=== PATIENT | male | born 1970 | race American Indian/Alaskan Native ===

== ENCOUNTER 2021-08-02 11:42 | Outpatient (REF) | payer OTHER, SELFPAY ==
--- NOTE | ~2021-08-02 | XR_ITS ---
EXAMINATION: XR SHOULDER, LEFT CLINICAL INFORMATION: S43.50XA - Sprain of unspecified acromioclavicular joint COMPARISON: None TECHNIQUE: Left shoulder is imaged in 3 views. FINDINGS: There is no fracture, dislocation, destructive process. The glenohumeral joint appears normal. There are degenerative changes acromioclavicular joint with inferior spurring distal clavicle. There is no acromioclavicular widening or elevation distal clavicle. No visible rotator cuff calcifications. XR/XR shoulder LT min 2V IMPRESSION: Degenerative changes acromioclavicular joint.
== END 2021-08-02 11:43 | disposition home or self-care (01) ==
LOC: HO.HMGCX 11:42
PROVIDERS: PCP Physician Assistant; Visit Provider Internal Medicine
DX: S43.50XA Sprain of unspecified acromioclavicular joint, initial encounter (principal)
CPT/HCPCS: 73030

== ENCOUNTER 2021-11-10 08:00 | Outpatient (RCR) | payer OTHER, SELFPAY ==
--- NOTE | 2021-11-02 09:43 | MHC.PT.EP ---
[facility] [place] [facility] [place] [facility] [place] Office [address] Jed Vivas [address] [phone] F: [phone] F: [phone] F: [phone] F: [phone] Physical Therapy Plan of Care Date of Evaluation: Date of Surgery: Diagnosis: Sprain of L AC joint. Assessment: Pt is a 51 y/o male referred to PT for eval and treat of sprain of L AC joint who presents with signs and Sx consistent with L shoulder dysfunction resulting in decreased tolerance and ability for perform light and heavy HH chores, dressing pullovers, lifting objects of weight, reaching his neck for hygiene and dressing, reaching high shelves, as well as disturbed sleep secondary to decreased L shoulder ROM and strength, decreased scapular posture, TTP of superior lateral L shoulder, and pain. Pt is deemed an appropriate candidate to receive skilled PT in order to address his physical limitations to improve his functional ability. Frequency and Duration: The patient will be seen 2 x / wk x 5 wks. Short Term Goals: Initiate HEP. Improve baseline pain with activity to < 5/10; initial; 7-8/10. improve L shoulder flexion AAROM to > 149 degrees; initial: 50 degrees. Mat Roller Goals: I with HEP. Pt will be able to dress pullovers with at most 2/10 difficulty; initial: 10/10. Pt will be able to place 1# object on high shelf; initial: unable. Improve L shoulder abd MMT to > 4-/5; initial 3+/5. Treatment Plan: Modalities to reduce pain, spasms and effusion. Manual therapy to restore motion and function. Therapeutic exercise to improve strength and flexibility. Neuromuscular re-education for posture and balance. Therapeutic activities to return to functional activities of daily living. Electronically signed by: Aaron Kurtz, PT, DPT Please sign and return to therapist. Thank you for your referral.
--- NOTE | 2021-11-17 09:04 | MHC.PT.DC ---
[facility] [place] [facility] [place] Office [place] Office [address] Jed Vivas [address] [phone] F: [phone] F: [phone] F: [phone] F: [phone] Physical Therapy Discharge Report Diagnosis: Sprain of L AC joint. Date of Surgery: Date of Evaluation: 10/29/21 Date of Discharge: Treatments to Date: 4 Cancellations to Date: 1 No Shows to Date: Discharge Status: Discharge Summary: Tarun presents with continued minimal improvement of AROM and function and also presents with new MRI which was reviewed. Pt and PT in agreement on DC at this time in light of significant MRI findings and Pt will seek orthopedic guidance and management before he returns to therapy as his pain is largely the same and his AROM and function has not significantly improved. Electronically signed by: Aaron Kurtz, PT, DPT Please sign and return to therapist. Thank you for your referral.
== END 2021-11-17 09:10 | disposition home or self-care (01) ==
LOC: HO.PTCHIC 08:00
PROVIDERS: PCP Physician Assistant; Visit Provider Physician Assistant
DX: S43.50XA Sprain of unspecified acromioclavicular joint, initial encounter (principal)
CPT/HCPCS: 97014; 97110; 97140; 97161

== ENCOUNTER 2021-11-11 15:36 | Outpatient (REF) | payer OTHER, SELFPAY ==
--- NOTE | ~2021-11-11 | MR_ITS ---
EXAMINATION: MRI LEFT SHOULDER WITHOUT CONTRAST CLINICAL INFORMATION: Sprain of muscle. Patient reports decreased range of motion. Injury July 2021. COMPARISON: X-ray of the left shoulder July 2021. TECHNIQUE: MRI of the left shoulder was performed without contrast on a high-field MRI scanner. FINDINGS: ROTATOR CUFF: Supraspinatus and infraspinatus: There is a large insertional tear involving the entire supraspinatus and infraspinatus tendons. The torn tendons are retracted resulting in a tendon gap measuring up to 4 cm in medial to lateral and 4.5 cm anterior to posterior. There is additional intrasubstance tearing of the infraspinatus tendon extending back to level of the musculotendinous junction. With regard to the supraspinatus, there is slight greater proximal retraction of the articular-sided fibers compared with the bursal fibers. There is mild atrophy and fatty infiltration of both muscles. Mild edema of the supraspinatus muscle. Teres minor: Intact. Subscapularis: Mild heterogeneity of the upper fibers at the insertion compatible with some minimal interstitial partial tearing and tendinosis. No measurable defect or tendon retraction. Muscle normal. BICEPS: Normal. CORACOACROMIAL ARCH: There is moderate hypertrophic osteoarthritis of the acromioclavicular joint. There is a subacromial spur anteriorly. BURSA: Free communication of fluid between the bursa and glenohumeral joint consistent with rotator cuff tear. LABRUM/CAPSULE: Intact. GLENOHUMERAL JOINT: Humeral head is subluxed cephalad nearly abutting the undersurface of the acromion related to the rotator cuff defect. There articular cartilage is intact. There is some minimal clustered cystic change in the greater tuberosity. MR/MR shoulder LT wo con IMPRESSION: Large complete insertional tear of the supraspinatus and infraspinatus with mild atrophy and fatty infiltration of the muscles. Mild edema of the infraspinatus muscle. Tendinosis and minimal partial tearing of the subscapularis tendon without a measurable defect. 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 Joint effusion.
== END 2021-11-11 15:37 | disposition home or self-care (01) ==
LOC: HO.MRI 15:36
PROVIDERS: PCP Physician Assistant; Visit Provider Physician Assistant
DX: S46.212D Strain of muscle, fascia and tendon of other parts of biceps, left arm, subsequent encounter (principal)
CPT/HCPCS: 73221

== ENCOUNTER 2022-02-23 08:42 | Outpatient (REF) | payer OTHER, SELFPAY ==
[2022-02-23 09:08] LABS: Hematocrit 45.6 % (42.0-52.0); Hemoglobin 15.7 g/dl (14.0-18.0); Mean Corpuscular HGB Conc 34.4 g/dl (31.0-36.0); Mean Corpuscular Hemoglobin 30.7 pg (27.0-33.0); Mean Corpuscular Volume 89.2 fL (80.0-98.0); Mean Platelet Volume 9.1 fL (9.4-12.4); Platelet Count 233 X10*3/uL (160-400); Red Blood Count 5.11 X10*6/uL (4.60-5.80); Red Cell Distribution Width 12.5 % (11.0-16.0); White Blood Count 7.4 X10*3/uL (4.8-10.8)
[2022-02-23 09:14] LABS: Estimated Average Glucose 108 mg/dL; Hemoglobin A1c % 5.4 %
[2022-02-23 09:33] LABS: Alanine Aminotransferase 39 U/L (0-40); Albumin Level 4.4 g/dL (3.5-5.0); Alkaline Phosphatase 74 U/L (39-117); Anion Gap 11 (12-20); Aspartate Amino Transferase 26 U/L (5-37); Bilirubin Total 0.5 mg/dL (0.0-1.0); Blood Urea Nitrogen 15 mg/dL (9-16); Calcium 9.4 mg/dL (8.4-10.2); Carbon Dioxide 28 mmol/L (22-29); Chloride 107 mmol/L (96-108); Cholesterol 222 mg/dL; Estimated Glomerular Filt Rate > 60; Glucose Fasting 109 mg/dL (60-99); HDL Cholesterol 51 mg/dL; LDL Cholesterol Calculated 159 mg/dl; Potassium 4.9 mmol/L (3.3-5.1); Sodium 141 mmol/L (135-145); Total Protein 6.9 g/dL (6.5-8.0); Triglycerides 63 mg/dL
[2022-02-23 09:54] LABS: Prostate Specific Antigen Scr 1.75 ng/mL (<0.05-4.0); TSH reflex Free T4 1.32 uIU/mL (0.32-4.0)
== END 2022-02-23 08:43 | disposition home or self-care (01) ==
LOC: HO.LAB 08:42
PROVIDERS: PCP Physician Assistant; Visit Provider Physician Assistant
DX: Z12.5 Encounter for screening for malignant neoplasm of prostate (principal); I10 Essential (primary) hypertension
CPT/HCPCS: 36415; 80053; 80061; 82306; 83036; 84153; 84443; 85027

== ENCOUNTER 2023-01-04 14:56 | Outpatient (REF) | payer OTHER, SELFPAY ==
--- NOTE | ~2023-01-04 | US_ITS ---
EXAMINATION: US ABDOMEN COMPLETE CLINICAL INFORMATION: Hypoglycemia, unspecified. COMPARISON: None available. TECHNIQUE: Real-time imaging of the abdominal viscera. FINDINGS: PANCREAS: Normal. ABDOMINAL AORTA: Visualized portions are normal. INFERIOR VENA CAVA: Visualized portions are normal. LIVER: The liver is normal in size. The liver contour is normal. Increased echogenicity sparing regions adjacent to the gallbladder fossa. No focal hepatic lesion. There is no intrahepatic biliary duct dilatation seen. GALLBLADDER: Normal. The gallbladder is physiologically distended without evidence of stones, sludge, polyps, wall thickening or pericholecystic fluid. COMMON BILE DUCT: Normal in caliber measuring 0.3 cm in diameter. RIGHT KIDNEY: Normal. No hydronephrosis. No renal calculi or focal parenchymal lesions. The kidney measures 10.4 cm in maximum dimension. LEFT KIDNEY: Normal. No hydronephrosis. No renal calculi or focal parenchymal lesions. The kidney measures 11.8 cm in maximum dimension. SPLEEN: Normal. The spleen measures 12.2 cm in maximum dimension. FREE FLUID: None. US/US abdomen complete IMPRESSION: 1. Increased parenchymal echogenicity suggesting hepatocellular disease or hepatic steatosis. 2. Otherwise, normal examination.
[2023-01-04 16:18] LABS: Hematocrit 44.1 % (42.0-52.0); Hemoglobin 15.5 g/dl (14.0-18.0); Mean Corpuscular HGB Conc 35.1 g/dl (31.0-36.0); Mean Corpuscular Hemoglobin 30.8 pg (27.0-33.0); Mean Corpuscular Volume 87.5 fL (80.0-98.0); Mean Platelet Volume 9.3 fL (9.4-12.4); Platelet Count 299 X10*3/uL (160-400); Red Blood Count 5.04 X10*6/uL (4.60-5.80); Red Cell Distribution Width 12.6 % (11.0-16.0); White Blood Count 10.2 X10*3/uL (4.8-10.8)
[2023-01-04 16:35] LABS: Alanine Aminotransferase 46 U/L (0-40); Albumin Level 4.6 g/dL (3.5-5.0); Alkaline Phosphatase 81 U/L (39-117); Anion Gap 12 (12-20); Aspartate Amino Transferase 34 U/L (5-37); Bilirubin Total 0.8 mg/dL (0.0-1.0); Blood Urea Nitrogen 16 mg/dL (9-16); Calcium 9.6 mg/dL (8.4-10.2); Carbon Dioxide 28 mmol/L (22-29); Chloride 104 mmol/L (96-108); Estimated Glomerular Filt Rate > 60; Glucose Fasting 98 mg/dL (60-99); Lipase 33 U/L (8-78); Potassium 4.2 mmol/L (3.3-5.1); Sodium 140 mmol/L (135-145)
[2023-01-04 16:53] LABS: Creatinine Urine 200.77 mg/dL; Microalbum/Creatinine Ratio Ur 12.9 ug/mg cr
[2023-01-04 16:57] LABS: Prostate Specific Antigen Scr 1.96 ng/mL (<0.05-4.0); TSH reflex Free T4 2.63 uIU/mL (0.32-4.0)
== END 2023-01-04 14:57 | disposition home or self-care (01) ==
LOC: HO.HMGCX 14:56
PROVIDERS: PCP Physician Assistant; Visit Provider Physician Assistant
DX: I10 Essential (primary) hypertension (principal); E16.2 Hypoglycemia, unspecified; Z12.5 Encounter for screening for malignant neoplasm of prostate
CPT/HCPCS: 36415; 76700; 80053; 82043; 83690; 84153; 84443; 85027

== ENCOUNTER 2023-08-07 14:59 | Outpatient (AMB) | payer OTHER, SELFPAY ==
--- NOTE | 2023-08-07 15:19 | A.OFFPC_ITS ---
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 Accompanied by: Self / Same As Patient Allergies amoxicillin Allergy (Unknown, Verified 08/07/23 15:49) unknown doxycycline Allergy (Unknown, Verified 08/07/23 15:49) hives onion Allergy (Unknown, Verified 08/07/23 15:49) hives tetracycline Allergy (Unknown, Verified 08/07/23 15:49) hives environmental Allergy (Unknown, Uncoded 12/26/22 08:17) Unknown Medication List - Last Reconciled 08/07/23 by Rush Lancaster PA-C albuterol sulfate 2.5 mg (3 mL) inhalation Q6H albuterol sulfate 90 mcg/actuation 2 puffs inhalation Q6H PRN 30 days cyclobenzaprine 10 mg PO TID PRN 7 days lisinopril-hydrochlorothiazide 10-12.5 mg 1 tab PO DAILY 90 days meloxicam 15 mg PO DAILY 30 days montelukast 10 mg PO DAILY nebulizer accessories As directed nebulizers (Compact Compressor Nebulizer) As directed valacyclovir 500 mg PO DAILY Tobacco use date assessed: 12/26/22 Dental Screening Dental Screen Date: 08/07/23 Did you have a dental visit in the last 12 months?: Yes Did you have a dental problem in the last 6 months where you did not have access to dental care?: No Was dental information given to patient?: Patient has dentist HPI Pe HPI Details Patient is a 52-year-old here today for annual physical.? Patient has a past medical history significant for COPD, hypertension. CHRONIC MEDICAL CONDITIONS--> Left rotator cuff tear: Recently underwent left rotator cuff repair,has been in PT and has regained some ROM ( only 60 %). Continues with the use of meloxicam on a daily basis, p.r.n. use of cyclobenzaprine which is helpful on reducing his muscle tension when needed. Still works full-time. .. HTN: Blood pressure acceptable today in office. ? He reports blood pressures at home have been 130s to 140 systolic.? He reports he may have forgotten to take his blood pressure medication today. ?He does report his diet is poor .? Otherwise denies any chest discomfort, headaches or shortness of breath. .. : Obese: He does understand his BMI is over 30 will try to work on being more physically active and adapting to better eating habits to reduce his weight. .. 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 does have a nebulizer fail a bbl to him. . Lumbar disc disease:? Continues with the use of cyclobenzaprine at night and meloxicam during the day (2 weeks on/ 2 weeks off). .. Colon cancer screening: Has done Cologuard though no results Vaccines: Up-to-date with pneumonia vaccine, tetanus vaccine. Considering flu vaccine? [facility] Medical History (Updated 08/09/23 @ 12:52 by Rush Lancaster PA-C) Hypertension COPD (chronic obstructive pulmonary disease) Surgical History (Updated 08/09/23 @ 12:52 by Rush Lancaster PA-C) History of shoulder surgery Deficient knowledge of leg surgery History of tonsillectomy Family History Father CVD (cardiovascular disease) History of quadruple bypass Mother Diabetes Ovarian cancer Breast cancer Brain cancer Sister In good health Maternal Grandmother Cancer Maternal Grandfather Lung cancer Paternal Grandmother Dementia in Alzheimer's disease Paternal Grandfather Renal failure GI cancer (Updated 08/07/23 @ 15:57 by Rush Lancaster PA-C) Housing: House Alcohol intake: current Alcohol intake frequency: holidays/special occasions only Patient Tobacco Use Status: Never used Tobacco e-Cigarette/Vaping Use: Never Used Second Hand Smoke Exposure: No Substance Use Type: Marijuana service: No Current occupational status: employed 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 Luis Fernando Melgar, Eliza Parsons, Uri cAuna and colleagues, with an educational joshua from [employer]. Review of Systems Const Denies body aches, Denies chills, Denies excessive sweating, Denies fatigue, Denies fever(s) and Denies headache(s) Eyes Denies blurry vision ENT Denies dysphagia, Denies vertigo, Denies dizziness, Denies headache(s), Denies hearing loss and Denies tinnitus Card Denies chest pain, Denies chest pain with activity, Denies syncope, Denies irregular heart rhythm and Denies dyspnea Resp Denies chest congestion, Denies cough, Denies hemoptysis, Denies dyspnea and Denies wheezing GI Denies abdominal pain, Denies melena, Denies hematochezia, Denies coffee ground emesis, Denies dysphagia, Denies diarrhea, Denies nausea and Denies vomiting Denies difficulty urinating, Denies dysuria, Denies urinary frequency, Denies urinary hesitancy and Denies urinary urgency Musc Denies arthralgias, Denies limited range of motion, Denies muscle cramps and Denies muscle weakness Skin/Breast Denies rash and Denies skin ulcer Neuro Denies Abnormal speech present, Denies confusion, Denies vertigo, Denies dizziness, Denies syncope, Denies headache(s), Denies memory loss and Denies seizure-like activity Psych Denies anxiety, Denies confusion, Denies depression, Denies memory loss, Denies panic attacks and Denies paranoia Endo Denies excessive sweating, Denies fatigue, Denies flushing, Denies polydipsia and Denies polyuria Aller/Immun Denies wheezing Physical exam (Primary Care) Vital Signs: Last Vital Signs Pulse 78 08/07/23 15:20 BP 118/76 08/07/23 15:20 Pulse Ox 98 08/07/23 15:20 Oxygen Delivery Method Room Air 08/07/23 15:20 BMI result Body Mass Index 34.6 BMI Assessment/Plan discussion: High Tobacco/Smoking Status: Tobacco use Status Tobacco use date assessed 12/26/22 08/07/23 15:21 Patient Tobacco Use Status Never used Tobacco 08/07/23 15:57 e-Cigarette/Vaping Use Never Used 08/07/23 15:57 Thrive Assessment: Date of Thrive Assessment Date Thrive assessed 12/26/22 08/07/23 15:21 Const Other: Obese General: cooperative, comfortable, no acute distress, alert and awake; No confusion Orientation/consciousness: oriented to person, oriented to place, patient oriented x3 and No confusion HENMT Head: Yes normocephalic Ears: external ears normal and TM's normal bilaterally Face and sinus: No sinus tenderness Mouth: Normal oral and palatal mucosa present and tongue normal Teeth and gingiva: dentition normal and gingiva normal Throat: Yes posterior oropharynx normal, Yes tonsils normal and Yes uvula midline Eyes Conjunctivae: conjunctivae normal Sclerae: sclerae normal Pupils: Equal, round and reactive pupils present EOM: EOMs intact bilaterally Direct Ophthalmoscopy: No no photophobia Neck Neck: Yes no lymphadenopathy, No tender and Yes no JVD Thyroid: Thyroid normal Carotids: no bruits Chest Chest palpation & inspection: no tenderness Resp Effort & Inspection: normal respiratory effort, no audible wheezes, not labored and no stridor Auscultation: no crackles, no rales, no rhonchi and no wheezes Cardio Jugular venous distension: no JVD Rate: regular rate, not bradycardic and not tachycardic Rhythm: regular rhythm Bruits: no carotid bruits Peripheral pulses: Peripheral pulses 2+ throughout GI Inspection: Yes normal to inspection, No abdominal wall ecchymosis and No visible herniation Palpation (GI): Soft to palpation, nontender, no guarding, not rigid and No hepatosplenomegaly present Auscultation: normoactive bowel sounds General: Yes no CVA tenderness Back/Spine/Pelvis Back: no CVA tenderness and No back tenderness Cervical Spine: cervical ROM normal Thoracic/Lumbar Spine: thoracic and lumbar spine normal to inspection, straight leg raise negative bilaterally, No thoraco-lumbar ROM limited and No lumbar spinal tenderness Skin Lesions: no lesions Rashes: no rashes Wounds: no wounds Neuro General: oriented to person, oriented to place, patient oriented x3, CN's II-XI intact bilaterally and No confusion Cranial nerves: Yes Equal, round and reactive pupils present and Yes Normal accommodation reflex present Cognition (Neuro): normal cognition Speech: No Abnormal speech present Gait exam (Neuro): Normal gait present Motor exam (neuro): 5/5 motor strength present throughout Extrem Other: LEFT SHOULDER: VERY LIMITED RANGE OF MOTION Right upper extremity: full ROM; no cyanosis Left upper extremity: no cyanosis Right lower extremity: no edema Left lower extremity: no edema Psych Appearance: grossly normal Mental Status: mental status grossly normal Affect: normal affect Attitude: cooperative Thought process: Normal thought process present Assessment and Plan Assessment & Plan (1) Annual physical exam: Code(s): Z00.00 - Encounter for general adult medical examination without abnormal findings (2) HTN (hypertension): Code(s): I10 - Essential (primary) hypertension Qualifiers: Hypertension type: essential hypertension Qualified Code(s): I10 - Essential (primary) hypertension Plan: Patient's blood pressure acceptable today in office. Will continue him on his current dose of hydrochlorothiazide. Goal blood pressures to remain below 140/90 (3) HLD (hyperlipidemia): Code(s): E78.5 - Hyperlipidemia, unspecified Qualifiers: Hyperlipidemia type: mixed hyperlipidemia Qualified Code(s): E78.2 - Mixed hyperlipidemia Plan: Patient does have borderline high total cholesterol. Will work on lifestyle modifications on reducing his eye cholesterol foods. He does admit to dietary indiscretion. (4) COPD (chronic obstructive pulmonary disease): Code(s): J44.9 - Chronic obstructive pulmonary disease, unspecified Qualifiers: COPD type: unspecified COPD Qualified Code(s): J44.9 - Chronic obstructive pulmonary disease, unspecified Plan: Continues with the use nebulizer albuterol inhaler as needed. 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 [place] (5) Obese: Code(s): E66.9 - Obesity, unspecified Qualifiers: Obesity type: due to excess calories Obesity classification: adult class 1 (BMI 30 - 34.9) Serious obesity comorbidity presence: without serious comorbidity Body mass index: BMI 33.0-33.9 Qualified Code(s): E66.09 - Other obesity due to excess calories; Z68.33 - Body mass index [BMI] 33.0-33.9, adult Plan: Patient does understand his BMI is over 30 will continue to try to work on being more physically active and adapting to better eating habits to reduce his weight (6) Status post left rotator cuff repair: Code(s): Z98.890 - Other specified postprocedural states Plan: Patient is status post left rotator cuff repair. Has gained some strength and range of motion back though reports he is only 60%. Continues to have pain and stiffness to which he uses muscle relaxer and NSAID for. Continues to work full-time Orders: Orders Comprehensive [place]. Panel Fast 08/07/23 I10 - Essential (primary) hypertension Prostate Specific Antigen Scr 08/07/23 I10 - Essential (primary) hypertension, Z12.5 - Encounter for screening for malignant neoplasm of prostate Microalbumin, Random (w Creat) 08/07/23 I10 - Essential (primary) hypertension Lipid Panel 08/07/23 E78.2 - Mixed hyperlipidemia Coding Level of Care Code Est Pt Prev Care 40-64y([id number]) Diagnoses Annual physical exam Z00.00 Essential hypertension I10 Hypertension type: essential hypertension Mixed hyperlipidemia E78.2 Hyperlipidemia type: mixed hyperlipidemia Chronic obstructive pulmonary disease, unspecified COPD type J44.9 COPD type: unspecified COPD Class 1 obesity due to excess calories without serious comorbidity with body mass index (BMI) of 33.0 to 33.9 in adult E66.09; Z68.33 Obesity type: due to excess calories Obesity classification: adult class 1 (BMI 30 - 34.9) Serious obesity comorbidity presence: without serious comorbidity Body mass index: BMI 33.0-33.9 Status post left rotator cuff repair Z98.890
[2023-08-07 15:20] VITALS: BP 118/76; PULSE 78; O2SAT 98; BMI 34.6
== END 2023-08-07 16:09 | disposition home or self-care (01) ==
PROVIDERS: PCP Physician Assistant; Visit Provider Physician Assistant
DX: Z00.00 Encounter for general adult medical examination without abnormal findings (principal); I10 Essential (primary) hypertension; E78.2 Mixed hyperlipidemia; J44.9 Chronic obstructive pulmonary disease, unspecified; E66.09 Other obesity due to excess calories; Z68.33 Body mass index [BMI] 33.0-33.9, adult; Z98.890 Other specified postprocedural states
CPT/HCPCS: 99396

== ENCOUNTER 2023-09-25 09:58 | Outpatient (AMB) | payer OTHER, SELFPAY ==
--- NOTE | 2023-09-25 10:02 | MHC.PC.OV ---
Vital Signs 09/25/23 10:03 Height 5 ft 10 in Weight 249 lb BMI 35.7 BP 132/80 Blood Pressure Location Lt brachial Position Sitting Intake Visit Reasons: Numbness/tingling neck and jaw Intake Note: Patient here for numbness/ tingling neck and sukumar going on a few weeks [employer] Required: No Accompanied by: Self / Same As Patient Allergies amoxicillin Allergy (Unknown, Verified 09/25/23 10:12) unknown doxycycline Allergy (Unknown, Verified 09/25/23 10:12) hives onion Allergy (Unknown, Verified 09/25/23 10:12) hives tetracycline Allergy (Unknown, Verified 09/25/23 10:12) hives environmental Allergy (Unknown, Uncoded 09/25/23 10:12) Unknown Medication List - Last Reconciled 09/25/23 by Nika Mendez MD albuterol sulfate 2.5 mg (3 mL) inhalation Q6H albuterol sulfate 90 mcg/actuation 2 puffs inhalation Q6H PRN 30 days cyclobenzaprine 10 mg PO TID PRN 7 days lisinopril-hydrochlorothiazide 10-12.5 mg 1 tab PO DAILY 90 days meloxicam 15 mg PO DAILY 30 days montelukast 10 mg PO DAILY nebulizer accessories As directed nebulizers (Compact Compressor Nebulizer) As directed valacyclovir 500 mg PO DAILY Tobacco use date assessed: 09/25/23 Dental Screening Dental Screen Date: 09/25/23 Did you have a dental visit in the last 12 months?: Yes Did you have a dental problem in the last 6 months where you did not have access to dental care?: No Was dental information given to patient?: Patient has dentist HPI HPI Comments History of Present Illness Details This is a 53-year-old male with hypertension and asthma that comes today complaining of jaw pain and neck pain associated with numbness and tingling more prominent on the left side radiating to the left shoulder. This started few weeks ago with no previous injury. Had left rotator cough tear repair a year ago and still has some pain and limited range of motion. This happen with certain movements. Neck has limited range of motion. Blood pressure stable with medications. Use rescue inhaler as needed for his asthma. [facility] Medical History (Updated 09/25/23 @ 10:25 by Nika Mendez MD) Hypertension COPD (chronic obstructive pulmonary disease) Surgical History History of shoulder surgery Deficient knowledge of leg surgery History of tonsillectomy Family History Father CVD (cardiovascular disease) History of quadruple bypass Mother Diabetes Ovarian cancer Breast cancer Brain cancer Sister In good health Maternal Grandmother Cancer Maternal Grandfather Lung cancer Paternal Grandmother Dementia in Alzheimer's disease Paternal Grandfather Renal failure GI cancer Social History Housing: House Alcohol intake: current Alcohol intake frequency: holidays/special occasions only Patient Tobacco Use Status: Never used Tobacco e-Cigarette/Vaping Use: Never Used Second Hand Smoke Exposure: No Substance Use Type: Marijuana service: No Current occupational status: employed 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 1. Little interest or pleasure in doing things: not at all 2. Feeling down, depressed, or hopeless: not at all 3. Trouble falling or staying asleep, or sleeping too much: not at all 4. Feeling tired or having little energy: not at all 5. Poor appetite or overeating: not at all 6. Feeling bad about yourself - or that you are a failure or have let yourself or your family down: not at all 7. Trouble concentrating on things, such as reading the newspaper or watching television: not at all 8. Moving or speaking so slowly that other people could have noticed. Or the opposite - being so fidgety or restless that you have been moving around a lot more than usual: not at all 9. Thoughts that you would be better off or of hurting yourself in some way: not at all Total score: 0 Depression Screening Interpretation: Negative Depression Screening Done: Yes 46522 - PHQ-9 Billing: Yes Source: Developed by Drs. Luis Fernando Melgar, Eliza Parsons, Uri Acuna and colleagues, with an educational joshua from [employer]. Thrive Questionnaire Date Thrive assessed: 09/25/23 I am a: Patient What is your living situation today?: I have a steady place to live Within the past 12 months, did the food you bought not last and you didn't have the money to get more?: Never true Within the past 12 months, did you worry whether your food would run out before you got money to buy more?: Never true Do you have trouble paying for medicines?: No Do you have trouble getting transportation to medical appointments?: No Do you have trouble paying your heating and electricity bill?: No Do you have trouble taking care of your child, family member or friend?: No Do you have trouble with day-to-day activities such as bathing, preparing meals, shopping, managing finances, etc.?: No Are you currently unemployed and looking for a job?: No Are you interested in more education?: No Please select the resources that you would like help with: None Currently or been in a relationship where the following occur: no concerns reported AUDIT C Alcohol Use Questionnaire (AUDIT-C) 1. How often do you have a drink containing alcohol?: Monthly or less 2. How many drinks containing alcohol do you have on a typical day when you are drinking?: 1 or 2 3. How often do you have six or more drinks on one occasion?: Never Total Score: 1 LENIN-7 AMB Questionnaire LENIN-7 Date LENIN - 7 assessed: 09/25/23 Feeling nervous, anxious, or on edge: 0 = Not at all Not being able to stop or control worryin = Not at all Worrying too much about different things: 0 = Not at all Trouble relaxin = Not at all Being so restless that it is hard to sit still: 0 = Not at all Becoming easily annoyed or irritable: 0 = Not at all Feeling afraid as if something awful might happen: 0 = Not at all Total LENIN-7 score (0-4 normal; 5-9 mild; 10-14 moderate; 15-21 severe): 0 Source: Developed by Drs. Luis Fernando Melgar, Eliza Parsons, Uri Acuna and colleagues, with an educational joshua from [employer]. LENIN-7 Assessment Billing LENIN-7 Assessment Tool: LENIN-7 Assessment 93882 Review of Systems Const All systems reviewed & are unremarkable except as noted in HPI and below Eyes Reports no additional complaints, Denies change in vision and Denies other visual disturbances ENT Reports neck pain Card Denies chest pain at rest, Denies chest pain with activity, Denies edema, Denies irregular heart rhythm, Denies claudication, Denies dyspnea, Denies dyspnea on exertion, Denies orthopnea, Denies paroxysmal nocturnal dyspnea and Denies slow heart rate Resp Denies cough, Denies dyspnea and Denies dyspnea on exertion GI Denies abdominal pain, Denies change in bowel habits, Denies excessive flatus, Denies nausea and Denies vomiting Denies urinary hesitancy, Denies urinary incontinence and Denies urinary urgency Musc Denies abnormal gait, Denies atrophy, Denies deformity, Denies limited range of motion, Reports neck pain and Reports numbness Skin/Breast Denies bleeding lesions, Denies changing lesions and Denies rash Neuro Denies abnormal gait, Denies behavioral changes, Denies lack of coordination and Reports numbness Psych Denies behavioral changes Physical exam (Primary Care) Vital Signs: Last Vital Signs BP 132/80 09/25/23 10:03 BMI result Body Mass Index 35.7 Tobacco/Smoking Status: Tobacco use Status Tobacco use date assessed 09/25/23 09/25/23 10:08 Patient Tobacco Use Status Never used Tobacco 09/25/23 10:04 e-Cigarette/Vaping Use Never Used 09/25/23 10:04 PHQ-9: PHQ-9 Score PHQ-9: Total score 0 09/25/23 10:08 Depression Screening Interpretation: Negative Thrive Assessment: Date of Thrive Assessment Date Thrive assessed 09/25/23 09/25/23 10:08 Currently or been in a relationship where the following occur: no concerns reported Eyes General: appearance normal, both eyes and all related structures Eyelids: Yes eyelids normal Conjunctivae: conjunctivae normal Neck Other: Limited lateral neck movements and limited neck flexion/extension Resp Effort & Inspection: normal respiratory effort Auscultation: clear to auscultation bilaterally Cardio Jugular venous distension: no JVD Rate: regular rate Rhythm: regular rhythm Heart sounds: S1 normal heart sound present and S2 normal heart sound present Assessment and Plan Assessment & Plan (1) HTN (hypertension): Code(s): I10 - Essential (primary) hypertension Qualifiers: Hypertension type: essential hypertension Qualified Code(s): I10 - Essential (primary) hypertension Plan: Continue lisinopril-hydrochlorothiazide. Blood pressure goal is equal or less than 130/80. (2) Asthma: Code(s): J45.909 - Unspecified asthma, uncomplicated Plan: Use rescue inhaler as needed. (3) Cervical radiculopathy: Code(s): M54.12 - Radiculopathy, cervical region Plan: X-ray ordered. Start physical therapy. (4) Jaw pain: Code(s): R68.84 - Jaw pain Plan: Continue Flexeril as needed. Orders: Orders XR cervical spine 2V Today M54.12 - Radiculopathy, cervical region PT Evaluation and Treatment Today M54.12 - Radiculopathy, cervical region Coding Level of Care Code Est Pt Level 4 (68906) Diagnoses Essential hypertension I10 Hypertension type: essential hypertension Asthma J45.909 Cervical radiculopathy M54.12 Jaw pain R68.84 Additional Codes LENIN-7 Assessment Billing - LENIN-7 Assessment Tool: LENIN-7 Assessment 15229 ([id number]) Time Spent (min) 20
[2023-09-25 10:03] VITALS: BP 132/80; BMI 35.7
== END 2023-09-25 10:22 | disposition home or self-care (01) ==
PROVIDERS: PCP Physician Assistant; Visit Provider Internal Medicine
DX: I10 Essential (primary) hypertension (principal); J45.909 Unspecified asthma, uncomplicated; M54.12 Radiculopathy, cervical region; R68.84 Jaw pain
CPT/HCPCS: 99214

== ENCOUNTER 2023-09-25 10:26 | Outpatient (REF) | payer OTHER, SELFPAY ==
--- NOTE | ~2023-09-25 | XR_ITS ---
EXAMINATION: XR MANDIBLE CLINICAL INFORMATION: Jaw pain. COMPARISON: None available. TECHNIQUE: 5 views of the mandible. Visualization limited due to overlying bone and soft tissues. FINDINGS: No gross displaced fracture of the mandible is appreciated. Degenerative changes on limited view of the cervical spine are better characterized separately in report for exam of 09/25/2023 of the cervical spine. XR/XR mandible <4V IMPRESSION: 1. No gross displaced fracture of the mandible is appreciated. MRI should be considered for further evaluation if there is concern for fracture or other pathology. 2. Degenerative changes on limited views of the cervical spine are better characterized separately for exam of 09/25/2023 of the cervical spine.
--- NOTE | ~2023-09-25 | XR_ITS ---
EXAMINATION: XR CERVICAL SPINE CLINICAL INFORMATION: Radiculopathy cervical region. COMPARISON: None available. TECHNIQUE: 4 views of the cervical spine. FINDINGS: Degenerative changes with moderate loss of disc space height and hypertrophic change at C5-C6. C6 and C7 poorly visualized due to overlying soft tissues. Multilevel facet arthropathy. Slight straightening of the normal cervical lordosis. XR/XR cervical spine 2V IMPRESSION: Moderate degenerative disc disease at C5-C6. C6 and C7 poorly visualized due to overlying soft tissues.
== END 2023-09-25 10:27 | disposition home or self-care (01) ==
LOC: HO.XRAY 10:26
PROVIDERS: PCP Physician Assistant; Visit Provider Internal Medicine
DX: M54.12 Radiculopathy, cervical region (principal); R68.84 Jaw pain
CPT/HCPCS: 70100; 72040

== ENCOUNTER 2023-11-13 09:00 | Outpatient (RCR) | payer OTHER, SELFPAY ==
--- NOTE | 2023-09-29 09:39 | MHC.PT.EP ---
[facility] [place] Office [place] Office [place] Office [address] [phone] F: [phone] F: [phone] F: [phone] F: [phone] Physical Therapy Plan of Care Date of Evaluation: 09/29/23 Date of Surgery: Diagnosis: Cervical Radiculopathy Assessment: Patient is a 53 year old R handed male who presents with s/s consistent with cervicalgia, neck pain. 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 Patient past medical history includes COPD, HTN and shoulder surgeries. Current impairments include pain, posture, ROM, flexibility, tissue tension, strength, activity tolerance and functional mobility. Functional limitations include decreased ability to push, pull, lift, carry, sleep, read, and turn head. Patient is motivated with good rehab potential. Skilled PT will address impairments and functional limitations in order to achieve goals. Frequency and Duration: The patient will be seen 2x/week for 5 weeks Short Term Goals: I with HEP - weeks C-spine Rotation 45 b/l - 3 weeks n/t absent - 3 weeks Architectural Engineer Goals: c-spine rotation 52 b/l - 5 weeks flex/ext arc 60 - 5 weeks NPDI 32% - 5 weeks Treatment Plan: Modalities to reduce pain, spasms and effusion. Manual therapy to restore motion and function. Therapeutic exercise to improve strength and flexibility. Neuromuscular re-education for posture and balance. Therapeutic activities to return to functional activities of daily living. Electronically signed by: Ozzy Peck, PT Please sign and return to therapist. Thank you for your referral.
--- NOTE | 2023-10-04 09:51 | MHC.PT.OD ---
[facility] [place] Office [place] Office [place] Office [address] Jed Vivas [address] [phone] F: [phone] F: [phone] F: [phone] F: [phone] Physical Therapy Daily Note Diagnosis: Cervical Radiculopathy Date of Surgery: Date of Evaluation: 09/29/23 Date of Treatment: 10/04/23 Treatments to Date: 2 Cancellations to Date: No Shows to Date: Authorized Visits: Insurance End Date: Precautions/ Contraindications:R and L rotator cuff surgeries, L side was done November 2022 through [facility] with PT for 5 months. He notes cadaver was used. Subjective: It is the same as it was. Pain Score and Location: L jaw and posterior neck Objective Flowsheet: Tests & Measures s/s along mandibular branch of trigeminal nerve vs C2 dermatome. Exercises supine pec stretch at low angle - stopped after 3x30 due to pain pulleys pain ROM flexion 4 min pt edu on pain free motion STM And TrP release, SOR HP used to start in supine 10 min Modalities Assessment: 10/04/22: After pt described no change in pain level, noting this morning it was all around the back of his neck, I elected to start him in supine with a hot pack to promote tissue extensibility and optimal response to manual therapy aimed at reduced tissue tension. I then administered STM and gentle TrP release to his LS and b/l cervical spine, including a SOR b/l. Pt did note during this that he was feeling fine. Do you have any pain right now? No . We then attempted a very low b/l supine pec stretch understanding his shoulder history and residual s/s. He noted no stretch being felt and pain in his shoulder. Where in your shoulder? In my shoulder. Where in your shoulder do you feel it? He pointed to his lateral and anterior humeral head. I then told him to stop, take his time sitting up as he was laying for about a half hour at that point. We then went to the pulleys to perform AAROM pain free. Before issuing him the pulleys, I instructed him on pain free ROM and that the goal was to move his arm/shoulders/neck muscles only in pain free ROM. He notes he understood and that he did this a lot in his prior PT experience. After 1.25 minutes, he noted, This isn't going to work. All it is doing is increasing my pain and popping. That is not all it is doing. It is promoting movement in your muscles which you noted are very tight. Where in your motion are you getting pain and popping? He actively raised his L shoulder to 90 degrees which was not far from his max ROM assessed in his evaluation. I asked him if he could continue staying below that level as to promote movement without pushing into painful ROM. He attempted for 1.5 more minutes then stopped saying this isn't going to work. It is hurting a lot. I asked if he remembered what I asked about staying in pain free ROM. He then stood up and said This isn't working between us. I'm going to cancel my appointments. I am done. He then walked to our front desk host and asked them to cancel his appointments and that this was the worst experience he had ever had at PT. He also expressed he did not like that I was communicating with other clinicians while I was treating him during his appointment. I will d/c him and communicate the unfortunate experience to his referring physician. Patient is a 53 year old R handed male who presents with s/s consistent with cervicalgia, neck pain. 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 Patient past medical history includes COPD, HTN and shoulder surgeries. Current impairments include pain, posture, ROM, flexibility, tissue tension, strength, activity tolerance and functional mobility. Functional limitations include decreased ability to push, pull, lift, carry, sleep, read, and turn head. Patient is motivated with good rehab potential. Skilled PT will address impairments and functional limitations in order to achieve goals. PT Plan: posture, ROM, flex, s/s management. Short Term Goals: I with HEP - weeks C-spine Rotation 45 b/l - 3 weeks n/t absent - 3 weeks Composite Laminator Goals: c-spine rotation 52 b/l - 5 weeks flex/ext arc 60 - 5 weeks NPDI 32% - 5 weeks Electronically signed by: Ozzy Peck, PT
== END 2024-01-19 08:00 | disposition home or self-care (01) ==
LOC: HO.PT 09:00
PROVIDERS: PCP Physician Assistant; Visit Provider Internal Medicine
DX: M54.12 Radiculopathy, cervical region (principal)
CPT/HCPCS: 97110; 97140; 97162; 97530

== ENCOUNTER 2023-11-17 08:12 | Outpatient (AMB) | payer OTHER, SELFPAY ==
[2023-11-17 08:14] VITALS: BP 148/90; PULSE 83; TEMP 36.4; O2SAT 99; BMI 35.5
--- NOTE | 2023-11-17 08:14 | MHC.OFFWIV ---
Intake Vital Signs 11/17/23 08:14 Height 5 ft 10 in Weight 247 lb 8 oz BMI 35.5 BP 148/90 H Blood Pressure Location Lt brachial Position Sitting Pulse 83 Pulse Source Pulse Oximeter Temp 97.5 F Temp Source Oral Pulse Oximetry (%) 99 Oxygen Delivery Method Room Air Intake Visit Reasons: EP ?[facility] Intake Note: Pt is here today for possible pink eyes. Pt states noticed last night . Itchy and painful Patient Tobacco Use Status: Never used Tobacco Allergies amoxicillin Allergy (Unknown, Verified 09/25/23 10:12) unknown doxycycline Allergy (Unknown, Verified 09/25/23 10:12) hives onion Allergy (Unknown, Verified 09/25/23 10:12) hives tetracycline Allergy (Unknown, Verified 09/25/23 10:12) hives environmental Allergy (Unknown, Uncoded 09/25/23 10:12) Unknown Medication List - Last Reconciled 11/17/23 by Hue Jerome MD albuterol sulfate 2.5 mg (3 mL) inhalation Q6H albuterol sulfate 90 mcg/actuation 2 puffs inhalation Q6H PRN 30 days cyclobenzaprine 10 mg PO TID PRN 7 days lisinopril-hydrochlorothiazide 10-12.5 mg 1 tab PO DAILY 90 days meloxicam 15 mg PO DAILY 30 days montelukast 10 mg PO DAILY nebulizer accessories As directed nebulizers (Compact Compressor Nebulizer) As directed valacyclovir 500 mg PO DAILY Do you need a note to return to daycare/school/sports/work: No HPI EP ?[facility] HPI Details 53-year-old gentleman came in today to be evaluated for possible conjunctivitis Patient says that his eyes started getting itchy 3 days ago And now they are weeping left more than right Having cloudy eye discharge feeling irritated On examination patient does have conjunctival injection left more than right with cloudy discharge at corners There is no photophobia corneas clear I am treating him with Cipro eyedrops to be used every 3 hour 1 drop each eye for 7 days If no improvement by Monday patient need to call his primary care for follow-up On review system there is no fever no chills no headache no dizziness no cough no sore throat no ear pain PFSH Medical History Hypertension COPD (chronic obstructive pulmonary disease) Surgical History History of shoulder surgery Deficient knowledge of leg surgery History of tonsillectomy Family History Father CVD (cardiovascular disease) History of quadruple bypass Mother Diabetes Ovarian cancer Breast cancer Brain cancer Sister In good health Maternal Grandmother Cancer Maternal Grandfather Lung cancer Paternal Grandmother Dementia in Alzheimer's disease Paternal Grandfather Renal failure GI cancer Social History Housing: House Alcohol intake: current Alcohol intake frequency: holidays/special occasions only Patient Tobacco Use Status: Never used Tobacco e-Cigarette/Vaping Use: Never Used Second Hand Smoke Exposure: No Substance Use Type: Marijuana service: No Current occupational status: employed 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 Current occupational exposures/hazards: No Cognitive needs: No Hearing needs: No Vision needs: Yes (glasses) Review of Systems Const All systems reviewed & are unremarkable except as noted in HPI and below Physical Exam Vital Signs: Last Vital Signs Temp 97.5 F 11/17/23 08:14 Pulse 83 11/17/23 08:14 BP 148/90 H 11/17/23 08:14 Pulse Ox 99 11/17/23 08:14 Oxygen Delivery Method Room Air 11/17/23 08:14 BMI result Body Mass Index 35.5 Const General: no acute distress Orientation/consciousness: patient oriented x3 Eyes Other: Conjunctiva injected left more than right, cloudy discharge in the corners, cornea clear, no photophobia, no pain with palpation, eyelids within normal limit Resp Effort & Inspection: normal respiratory effort and able to speak in complete sentences Auscultation: clear to auscultation bilaterally Neuro General: patient oriented x3 Psych Mental Status: mental status grossly normal Assessment & Plan Assessment & Plan (1) Acute conjunctivitis of both eyes: Code(s): H10.33 - Unspecified acute conjunctivitis, bilateral Qualifiers: Acute conjunctivitis type: bacterial Qualified Code(s): H10.33 - Unspecified acute conjunctivitis, bilateral Plan 53-year-old gentleman came in today to be evaluated for possible conjunctivitis Patient says that his eyes started getting itchy 3 days ago And now they are weeping left more than right Having cloudy eye discharge feeling irritated On examination patient does have conjunctival injection left more than right with cloudy discharge at corners There is no photophobia corneas clear I am treating him with Cipro eyedrops to be used every 3 hour 1 drop each eye for 7 days If no improvement by Monday patient need to call his primary care for follow-up On review system there is no fever no chills no headache no dizziness no cough no sore throat no ear pain Medications: New ciprofloxacin HCl 0.3% 1 drp ophthalmic (eye) .q3hr 7 days 10 mL 0RF Coding Level of Care Code Est Pt Level 3 (82242) Diagnoses Acute bacterial conjunctivitis of both eyes H10.33 Acute conjunctivitis type: bacterial
== END 2023-11-17 09:31 | disposition home or self-care (01) ==
PROVIDERS: PCP Physician Assistant; Visit Provider Internal Medicine
DX: H10.33 Unspecified acute conjunctivitis, bilateral (principal)
CPT/HCPCS: 99213

== ENCOUNTER 2023-11-23 07:42 | Outpatient (REF) | payer OTHER, SELFPAY | END 2023-11-23 07:43 | disposition home or self-care (01) | LOC: HO.MRI 07:42 | PROVIDERS: PCP Physician Assistant; Visit Provider Internal Medicine | DX: Z13.89 Encounter for screening for other disorder (principal) ==

== ENCOUNTER 2024-02-05 15:33 | Outpatient (AMB) | payer OTHER, SELFPAY ==
[2024-02-05 15:54] VITALS: BP 110/70; PULSE 86; O2SAT 96; BMI 34.4
--- NOTE | 2024-02-05 15:54 | A.OFFPC_ITS ---
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: No Accompanied by: Self / Same As Patient Allergies amoxicillin Allergy (Unknown, Verified 02/05/24 16:02) unknown doxycycline Allergy (Unknown, Verified 02/05/24 16:02) hives onion Allergy (Unknown, Verified 02/05/24 16:02) hives tetracycline Allergy (Unknown, Verified 02/05/24 16:02) hives environmental Allergy (Unknown, Uncoded 02/05/24 16:00) Unknown Medication List - Last Reconciled 02/05/24 by Rush Lancaster PA-C albuterol sulfate 2.5 mg (3 mL) inhalation Q6H albuterol sulfate 90 mcg/actuation 2 puffs inhalation Q6H PRN 30 days cyclobenzaprine 10 mg PO TID PRN 7 days lisinopril-hydrochlorothiazide 10-12.5 mg 1 tab PO DAILY 90 days meloxicam 15 mg PO DAILY 30 days montelukast 10 mg PO DAILY nebulizer accessories As directed nebulizers (Compact Compressor Nebulizer) As directed valacyclovir 500 mg PO DAILY Tobacco use date assessed: 09/25/23 Dental Screening Dental Screen Date: 09/25/23 HPI 6 month f/u HPI Details Patient is a 53-year-old here today for a follow-up visit.? Patient has a past medical history significant for COPD, hypertension, traumatic left rotator cuff tear. CHRONIC MEDICAL CONDITIONS--> Left rotator cuff tear: Recently underwent left rotator cuff repair,has been in PT and has regained some ROM ( only 60 %). Unfortunately he has plateaued in his progress. He is considering a full left shoulder replacement. Continues with the use of meloxicam on a daily basis, p.r.n. use of cyclobenzaprine which is helpful on reducing his muscle tension when needed. Still works full-time. .. HTN: Blood pressure acceptable today in office. ? He reports blood pressures at home have been 130s to 140 systolic.? He reports he may have forgotten to take his blood pressure medication today. ?He does report his diet is poor .? Otherwise denies any chest discomfort, headaches or shortness of breath. .. : Obese: Has lost a small amount of weight since last office visit. He does understand his BMI is over 30 will try to work on being more physically active and adapting to better eating habits to reduce his weight. .. 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 He still does shortness of breath especially on exertion. does have a nebulizer at times. He is considering [place] establishing care with pulmonology in [place] PLAN: He is willing to restart maintenance inhaler . Lumbar disc disease:? Continues with the use of cyclobenzaprine at night and meloxicam during the day (2 weeks on/ 2 weeks off). [facility] Medical History Hypertension COPD (chronic obstructive pulmonary disease) Surgical History History of shoulder surgery Deficient knowledge of leg surgery History of tonsillectomy Family History Father CVD (cardiovascular disease) History of quadruple bypass Mother Diabetes Ovarian cancer Breast cancer Brain cancer Sister In good health Maternal Grandmother Cancer Maternal Grandfather Lung cancer Paternal Grandmother Dementia in Alzheimer's disease Paternal Grandfather Renal failure GI cancer Social History Housing: House Alcohol intake: current Alcohol intake frequency: holidays/special occasions only Patient Tobacco Use Status: Never used Tobacco e-Cigarette/Vaping Use: Never Used Second Hand Smoke Exposure: No Substance Use Type: Marijuana service: No Current occupational status: employed Current occupation: [employer] Current occupational exposures/hazards: No Cognitive needs: No Hearing needs: No Vision needs: Yes (glasses) Questionnaire Thrive Questionnaire Date Thrive assessed: 09/25/23 LENIN-7 AMB Questionnaire LENIN-7 Date LENIN - 7 assessed: 09/25/23 Source: Developed by Drs. Luis Fernando Melgar, Eliza Parsons, Uri Acuna and colleagues, with an educational joshua from [employer]. Review of Systems Const Denies headache(s) Eyes Denies loss of vision ENT Denies vertigo, Denies dizziness, Denies headache(s) and Denies sore throat Card Denies chest pain, Denies leg edema and Denies lightheadedness Resp Denies cough, Denies hemoptysis and Denies wheezing GI Denies abdominal pain, Denies melena, Denies constipation, Denies diarrhea and Denies vomiting Denies dysuria, Denies urinary frequency and Denies urinary urgency Musc Denies arthralgias, Denies joint swelling, Denies numbness and Denies tingling Neuro Denies Abnormal speech present, Denies behavioral changes, Denies vertigo, Denies dizziness, Denies headache(s), Denies loss of vision, Denies memory loss, Denies numbness and Denies tingling Psych Denies anxiety, Denies behavioral changes, Denies depression, Denies memory loss and Denies panic attacks Archie/Lymph Denies easy bleeding and Denies easy bruising Aller/Immun Denies wheezing Physical exam (Primary Care) Vital Signs: Last Vital Signs Pulse 86 02/05/24 15:54 BP 110/70 02/05/24 15:54 Pulse Ox 96 02/05/24 15:54 Oxygen Delivery Method Room Air 02/05/24 15:54 BMI result Body Mass Index 34.4 Tobacco/Smoking Status: Tobacco use Status Tobacco use date assessed 09/25/23 02/05/24 16:01 Patient Tobacco Use Status Never used Tobacco 02/05/24 16:01 e-Cigarette/Vaping Use Never Used 02/05/24 16:01 Thrive Assessment: Date of Thrive Assessment Date Thrive assessed 09/25/23 02/05/24 16:01 Const General: healthy appearing, no acute distress, alert and awake Nutritional Appearance: well nourished Orientation/consciousness: oriented to person, oriented to place and oriented to time HENMT Ears: TM's normal bilaterally General nose exam: Normal nasal mucous membranes and turbinates present Eyes Conjunctivae: conjunctivae normal Sclerae: sclerae normal Pupils: Equal, round and reactive pupils present Neck Neck: Yes no lymphadenopathy and Yes no JVD Thyroid: Thyroid normal Carotids: no bruits Resp Effort & Inspection: normal respiratory effort and not tachypneic Auscultation: no crackles, no rales, no rhonchi and no wheezes Cardio Rate: regular rate Rhythm: regular rhythm Heart sounds: no murmurs and normal S1 and S2 GI Palpation (GI): Soft to palpation, nontender, no hepatomegaly and no splenomegaly Auscultation: normal bowel sounds Skin General skin exam: no rashes or lesions noted and dry skin Neuro General: oriented to person, oriented to place and oriented to time Cranial nerves: Yes Equal, round and reactive pupils present Speech: No Abnormal speech present Gait exam (Neuro): Normal gait present Motor exam (neuro): no tremor noted Extrem Other: LEFT SHOULDER SIGNIFICANTLY REDUCED RANGE OF MOTION, SOME TENDERNESS TO PALPATION IN THE ANTERIOR ASPECT OF HIS LEFT SHOULDER. NOTABLE TENSE SURROUNDING MUSCULATURE OF THE LEFT SHOULDER Right upper extremity: full ROM Right lower extremity: full ROM; no edema Left lower extremity: full ROM; no edema Psych Mental Status: mental status grossly normal Speech and movement: Normal speech and movement present Affect: normal affect Attitude: cooperative Thought process: Normal thought process present Assessment and Plan Assessment & Plan (1) HTN (hypertension): Code(s): I10 - Essential (primary) hypertension Qualifiers: Hypertension type: essential hypertension Qualified Code(s): I10 - Essential (primary) hypertension Plan: Patient's blood pressure acceptable today in office. Will continue him on his current dose of hydrochlorothiazide. Goal blood pressures to remain below 140/90 (2) HLD (hyperlipidemia): Code(s): E78.5 - Hyperlipidemia, unspecified Qualifiers: Hyperlipidemia type: mixed hyperlipidemia Qualified Code(s): E78.2 - Mixed hyperlipidemia Plan: Patient does have borderline high total cholesterol. Will work on lifestyle modifications on reducing his eye cholesterol foods. He does admit to dietary indiscretion. Goal LDL to be below 160 (3) COPD (chronic obstructive pulmonary disease): Code(s): J44.9 - Chronic obstructive pulmonary disease, unspecified Qualifiers: COPD type: unspecified COPD Qualified Code(s): J44.9 - Chronic obstructive pulmonary disease, unspecified Plan: Continues with the use nebulizer albuterol inhaler as needed. 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 Does follow a routeman in [place]. He is willing to restart a maintenance inhaler for better control of his shortness of breath and cough. (4) Obese: Code(s): E66.9 - Obesity, unspecified Qualifiers: Body mass index: BMI 33.0-33.9 Obesity classification: adult class 1 (BMI 30 - 34.9) Obesity type: due to excess calories Serious obesity comorbidity presence: without serious comorbidity Qualified Code(s): E66.09 - Other obesity due to excess calories; Z68.33 - Body mass index [BMI] 33.0-33.9, adult Plan: Patient does understand his BMI is over 30 will continue to try to work on being more physically active and adapting to better eating habits to reduce his weight (5) Status post left rotator cuff repair: Code(s): Z98.890 - Other specified postprocedural states Plan: Patient is status post left rotator cuff repair. Has gained some strength and r hakeem of motion back though reports he is only 60%. Continues to have pain and stiffness to which he uses muscle relaxer and NSAID for. Continues to work full-time. He has considering a full replacement of his left shoulder. Medications: New semaglutide (weight loss) (Wegovy) 0.5 mg (0.5 mL) subcut QWEEK 4 weeks 2 mL 0RF E66.09 - Other obesity due to excess calories, Z68.33 - Body mass index [BMI] 33.0-33.9, adult fluticasone propion-salmeterol 250-50 mcg/dose (Wixela Inhub) 1 inh inhalation BID 30 days 60 ea 3RF J44.9 - Chronic obstructive pulmonary disease, unspecified Changed From cyclobenzaprine 10 mg PO TID 7 days PRN 21 tabs 1RF muscle spasm M51.9 - Unspecified thoracic, thoracolumbar and lumbosacral intervertebral disc disorder To cyclobenzaprine 10 mg PO TID 10 days PRN 30 tabs 1RF muscle spasm M51.9 - Unspecified thoracic, thoracolumbar and lumbosacral intervertebral disc disorder Refilled montelukast 10 mg PO DAILY 90 tabs 1RF J44.9 - Chronic obstructive pulmonary disease, unspecified Patient Instructions: GOal: LDL to remain below 160, lose weight Barriers: Adherence to physical activity and healthy eating habits Coding Level of Care Code Est Pt Level 4 (09636) Diagnoses Essential hypertension I10 Hypertension type: essential hypertension Mixed hyperlipidemia E78.2 Hyperlipidemia type: mixed hyperlipidemia Chronic obstructive pulmonary disease, unspecified COPD type J44.9 COPD type: unspecified COPD Class 1 obesity due to excess calories without serious comorbidity with body mass index (BMI) of 33.0 to 33.9 in adult E66.09; Z68.33 Body mass index: BMI 33.0-33.9 Obesity classification: adult class 1 (BMI 30 - 34.9) Obesity type: due to excess calories Serious obesity comorbidity presence: without serious comorbidity Status post left rotator cuff repair Z98.890
== END 2024-02-05 16:30 | disposition home or self-care (01) ==
PROVIDERS: PCP Physician Assistant; Visit Provider Physician Assistant
DX: I10 Essential (primary) hypertension (principal); E78.2 Mixed hyperlipidemia; J44.9 Chronic obstructive pulmonary disease, unspecified; E66.09 Other obesity due to excess calories; Z68.33 Body mass index [BMI] 33.0-33.9, adult; Z98.890 Other specified postprocedural states
CPT/HCPCS: 99214

== ENCOUNTER 2024-05-23 15:27 | Outpatient (AMB) | payer OTHER, SELFPAY ==
--- NOTE | 2024-05-23 15:37 | A.OFFPC_ITS ---
Vital Signs 05/23/24 15:40 Height 5 ft 10 in Weight 228 lb BMI 32.7 BP 138/88 Blood Pressure Location Lt brachial Position Sitting Pulse 80 Pulse Source Pulse Oximeter Pulse Oximetry (%) 97 Oxygen Delivery Method Room Air Intake Visit Reasons: Vomiting, Nausea and Can't eat Intake Note: Pt is here for possible adverse reaction to the medication wegovy. Medical Office Assistant Required: No Accompanied by: Self / Same As Patient Allergies amoxicillin Allergy (Unknown, Verified 05/23/24 15:43) unknown doxycycline Allergy (Unknown, Verified 05/23/24 15:43) hives onion Allergy (Unknown, Verified 05/23/24 15:43) hives tetracycline Allergy (Unknown, Verified 05/23/24 15:43) hives environmental Allergy (Unknown, Uncoded 05/23/24 15:43) Unknown Medication List - Last Reconciled 05/23/24 by Rush Lancaster PA-C albuterol sulfate 2.5 mg (3 mL) inhalation Q6H albuterol sulfate 90 mcg/actuation 2 puffs inhalation Q6H PRN 30 days cyclobenzaprine 10 mg PO TID PRN 10 days fluticasone propion-salmeterol 250-50 mcg/dose (Wixela Inhub) 1 inh inhalation BID 30 days lisinopril-hydrochlorothiazide 10-12.5 mg 1 tab PO DAILY 90 days meloxicam 15 mg PO DAILY 30 days montelukast 10 mg PO DAILY nebulizer accessories As directed nebulizers (Compact Compressor Nebulizer) As directed semaglutide (weight loss) (Wegovy) 1 mg (0.5 mL) subcut QWEEK 4 weeks valacyclovir 500 mg PO DAILY Tobacco use date assessed: 09/25/23 Dental Screening Dental Screen Date: 09/25/23 HPI Vomiting, Nausea and Can't eat HPI Details Patient is a 53-year-old male here today for a problem visit. He reports having an upset stomach, vomiting and nausea and lack of appetite over the last 5 days. HE attributes this to a side effect to the Wegovy and his stopped using it. [facility] Medical History Hypertension COPD (chronic obstructive pulmonary disease) Surgical History History of shoulder surgery Deficient knowledge of leg surgery History of tonsillectomy Family History Father CVD (cardiovascular disease) History of quadruple bypass Mother Diabetes Ovarian cancer Breast cancer Brain cancer Sister In good health Maternal Grandmother Cancer Maternal Grandfather Lung cancer Paternal Grandmother Dementia in Alzheimer's disease Paternal Grandfather Renal failure GI cancer Social History Housing: House Alcohol intake: current Alcohol intake frequency: holidays/special occasions only Patient Tobacco Use Status: Never used Tobacco e-Cigarette/Vaping Use: Never Used Second Hand Smoke Exposure: No Substance Use Type: Marijuana service: No Current occupational status: employed Current occupation: [employer] Current occupational exposures/hazards: No Cognitive needs: No Hearing needs: No Vision needs: Yes (glasses) Questionnaire Thrive Questionnaire Date Thrive assessed: 09/25/23 LENIN-7 AMB Questionnaire LENIN-7 Date LENIN - 7 assessed: 09/25/23 Source: Developed by Drs. Luis Fernando Melgar, Eliza Parsons, Uri Acuna and colleagues, with an educational joshua from [employer]. Review of Systems Const Denies headache(s) Eyes Denies loss of vision ENT Denies vertigo, Denies dizziness, Denies headache(s) and Denies sore throat Card Denies chest pain, Denies leg edema and Denies lightheadedness Resp Denies cough, Denies hemoptysis and Denies wheezing GI Denies abdominal pain, Denies melena, Denies constipation, Reports GI cramping, Reports dyspepsia, Reports heartburn, Denies diarrhea, Reports nausea and Reports vomiting Denies dysuria, Denies urinary frequency and Denies urinary urgency Musc Denies arthralgias, Denies joint swelling, Denies numbness and Denies tingling Neuro Denies Abnormal speech present, Denies behavioral changes, Denies vertigo, Denies dizziness, Denies headache(s), Denies loss of vision, Denies memory loss, Denies numbness and Denies tingling Psych Denies anxiety, Denies behavioral changes, Denies depression, Denies memory loss and Denies panic attacks Archie/Lymph Denies easy bleeding and Denies easy bruising Aller/Immun Denies wheezing Physical exam (Primary Care) Vital Signs: Last Vital Signs Pulse 80 05/23/24 15:40 BP 138/88 05/23/24 15:40 Pulse Ox 97 05/23/24 15:40 Oxygen Delivery Method Room Air 05/23/24 15:40 BMI result Body Mass Index 32.7 Tobacco/Smoking Status: Tobacco use Status Tobacco use date assessed 09/25/23 05/23/24 15:38 Patient Tobacco Use Status Never used Tobacco 05/23/24 15:38 e-Cigarette/Vaping Use Never Used 05/23/24 15:38 Thrive Assessment: Date of Thrive Assessment Date Thrive assessed 09/25/23 05/23/24 15:38 Const General: healthy appearing, no acute distress, alert and awake Nutritional Appearance: well nourished Orientation/consciousness: oriented to person, oriented to place and oriented to time HENMT Ears: TM's normal bilaterally General nose exam: Normal nasal mucous membranes and turbinates present Eyes Conjunctivae: conjunctivae normal Sclerae: sclerae normal Pupils: Equal, round and reactive pupils present Neck Neck: Yes no lymphadenopathy and Yes no JVD Thyroid: Thyroid normal Carotids: no bruits Resp Effort & Inspection: normal respiratory effort and not tachypneic Auscultation: no crackles, no rales, no rhonchi and no wheezes Cardio Rate: regular rate Rhythm: regular rhythm Heart sounds: no murmurs and normal S1 and S2 GI Palpation (GI): Soft to palpation, nontender, no hepatomegaly and no splenomegaly Auscultation: normal bowel sounds Skin General skin exam: no rashes or lesions noted and dry skin Neuro General: oriented to person, oriented to place and oriented to time Cranial nerves: Yes Equal, round and reactive pupils present Speech: No Abnormal speech present Gait exam (Neuro): Normal gait present Motor exam (neuro): no tremor noted Extrem Right upper extremity: full ROM Left upper extremity: full ROM Right lower extremity: full ROM; no edema Left lower extremity: full ROM; no edema Psych Mental Status: mental status grossly normal Speech and movement: Normal speech and movement present Affect: normal affect Attitude: cooperative Thought process: Normal thought process present Assessment and Plan Assessment & Plan (1) Gastroenteritis: Code(s): K52.9 - Noninfective gastroenteritis and colitis, unspecified Plan: Patient signs and symptoms most consistent with a gastroenteritis. Will supply patient with antiemetic and antacid medication. He believes his side effects a due to Wegovy and has completely stopped Wegovy. Will graduate diet slowly and try to stay well hydrated. Advised to go to ER if symptoms worsened to the evaluated for about obstruction. Medications: New omeprazole 20 mg PO DAILY 14 caps 0RF 14 days K52.9 - Noninfective gastroenteritis and colitis, unspecified ondansetron 8 mg PO Q12H 14 tabs 0RF 7 days K52.9 - Noninfective gastroenteritis and colitis, unspecified Discontinued semaglutide (weight loss) (Wegovy) Discontinued Reason: Doctor's Order 1 mg (0.5 mL) subcut QWEEK 4 weeks 2 mL 1RF E66.09 - Other obesity due to excess calories, Z68.33 - Body mass index [BMI] 33.0-33.9, adult Coding Level of Care Code Est Pt Level 3 (23570) Diagnoses Gastroenteritis K52.9
[2024-05-23 15:40] VITALS: BP 138/88; PULSE 80; O2SAT 97; BMI 32.7
== END 2024-05-23 16:27 | disposition home or self-care (01) ==
PROVIDERS: PCP Physician Assistant; Visit Provider Physician Assistant
DX: K52.9 Noninfective gastroenteritis and colitis, unspecified (principal)
CPT/HCPCS: 99213

== ENCOUNTER 2024-08-08 10:17 | Outpatient (AMB) | payer OTHER, SELFPAY ==
[2024-08-08 10:21] VITALS: BP 128/78; PULSE 66; O2SAT 97; BMI 33.0
--- NOTE | 2024-08-08 10:21 | MHC.PC.OV ---
Vital Signs 08/08/24 10:21 Height 5 ft 10 in Weight 230 lb BMI 33.0 BP 128/78 Blood Pressure Location Lt brachial Position Sitting Pulse 66 Pulse Source Pulse Oximeter Pulse Oximetry (%) 97 Oxygen Delivery Method Room Air Intake Visit Reasons: Annual Exam Intake Note: Patient is here today for a physical. Practice Clinician Required: No Accompanied by: Self / Same As Patient Allergies amoxicillin Allergy (Unknown, Verified 08/08/24 10:47) unknown doxycycline Allergy (Unknown, Verified 08/08/24 10:47) hives onion Allergy (Unknown, Verified 08/08/24 10:47) hives tetracycline Allergy (Unknown, Verified 08/08/24 10:47) hives environmental Allergy (Unknown, Uncoded 08/08/24 10:47) Unknown Medication List - Last Reconciled 08/08/24 by Rush Lancaster PA-C albuterol sulfate 2.5 mg (3 mL) inhalation Q6H albuterol sulfate 90 mcg/actuation 2 puffs inhalation Q6H PRN 30 days cyclobenzaprine 10 mg PO TID PRN 10 days fluticasone propion-salmeterol 250-50 mcg/dose (Wixela Inhub) 1 inh inhalation BID 30 days lisinopril-hydrochlorothiazide 10-12.5 mg 1 tab PO DAILY 90 days meloxicam 15 mg PO DAILY 30 days montelukast 10 mg PO DAILY nebulizer accessories As directed nebulizers (Compact Compressor Nebulizer) As directed omeprazole 20 mg PO DAILY 14 days ondansetron 8 mg PO Q12H 7 days valacyclovir 500 mg PO DAILY Tobacco use date assessed: 09/25/23 Dental Screening Dental Screen Date: 09/25/23 HPI Annual Exam HPI Details Patient is a 53-year-old here today for a PE.? Patient has a past medical history significant for COPD, hypertension, traumatic left rotator cuff tear. CHRONIC MEDICAL CONDITIONS--> Left rotator cuff tear: Recently underwent left rotator cuff repair,has been in PT and has regained some ROM ( only 60 %). Unfortunately he has plateaued in his progress. He is considering a full left shoulder replacement. Continues with the use of meloxicam on a daily basis, p.r.n. use of cyclobenzaprine which is helpful on reducing his muscle tension when needed. Still works full-time. .. HTN: Blood pressure acceptable today in office. ? He reports blood pressures at home have been 130s to 140 systolic.? He reports he may have forgotten to take his blood pressure medication today. ?He does report his diet is poor .? Otherwise denies any chest discomfort, headaches or shortness of breath. .. : Obese: Has lost a small amount of weight since last office visit. Did side effects to Wegovy though is willing to try it again to help him lose weight. Does admit to dietary indiscretion and did feel that GLP 1 helped him with reducing his foodportions. He does understand his BMI is over 30 will try to work on being more physically active and adapting to better eating habits to reduce his weight. .. 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 He still does shortness of breath especially on exertion. does have a nebulizer at times. He is considering [place] establishing care with pulmonology in [place] continues with maintenance inhaler which has been helpful . Lumbar disc disease:? Continues with the use of cyclobenzaprine at night and meloxicam during the day (2 weeks on/ 2 weeks off. Colon cancer screening: Has done Cologuard though no results Vaccines: Up-to-date with pneumonia vaccine, needs tetanus vaccine. Declines flu vaccine? [facility] Medical History Hypertension COPD (chronic obstructive pulmonary disease) Surgical History History of shoulder surgery Deficient knowledge of leg surgery History of tonsillectomy Family History Father CVD (cardiovascular disease) History of quadruple bypass Mother Diabetes Ovarian cancer Breast cancer Brain cancer Sister In good health Maternal Grandmother Cancer Maternal Grandfather Lung cancer Paternal Grandmother Dementia in Alzheimer's disease Paternal Grandfather Renal failure GI cancer Social History Housing: House Alcohol intake: current Alcohol intake frequency: holidays/special occasions only Patient Tobacco Use Status: Never used Tobacco e-Cigarette/Vaping Use: Never Used Second Hand Smoke Exposure: No Substance Use Type: Marijuana service: No Current occupational status: employed 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 1. Little interest or pleasure in doing things: not at all 2. Feeling down, depressed, or hopeless: not at all 3. Trouble falling or staying asleep, or sleeping too much: not at all 4. Feeling tired or having little energy: not at all 5. Poor appetite or overeating: not at all 6. Feeling bad about yourself - or that you are a failure or have let yourself or your family down: not at all 7. Trouble concentrating on things, such as reading the newspaper or watching television: not at all 8. Moving or speaking so slowly that other people could have noticed. Or the opposite - being so fidgety or restless that you have been moving around a lot more than usual: not at all 9. Thoughts that you would be better off or of hurting yourself in some way: not at all Total score: 0 Depression Screening Interpretation: Negative Depression Screening Done: Yes 92738 - PHQ-9 Billing: Yes Source: Developed by Drs. Luis Fernando Melgar, Eliza Parsons, Uri Acuna and colleagues, with an educational joshua from [employer]. Thrive Questionnaire Date Thrive assessed: 08/08/24 I am a: Patient What is your living situation today?: I have a steady place to live Within the past 12 months, did the food you bought not last and you didn't have the money to get more?: Never true Within the past 12 months, did you worry whether your food would run out before you got money to buy more?: Never true Do you have trouble paying for medicines?: I choose not to answer this question Do you have trouble getting transportation to medical appointments?: I choose not to answer this question Do you have trouble paying your heating and electricity bill?: I choose not to answer this question Do you have trouble taking care of your child, family member or friend?: I choose not to answer this question Do you have trouble with day-to-day activities such as bathing, preparing meals, shopping, managing finances, etc.?: I choose not to answer this question Are you currently unemployed and looking for a job?: I choose not to answer this question Are you interested in more education?: I choose not to answer this question Please select the resources that you would like help with: None Currently or been in a relationship where the following occur: No concerns reported THRIVE Score: 0 AUDIT C Alcohol Use Questionnaire (AUDIT-C) 1. How often do you have a drink containing alcohol?: 2-3 times a week 2. How many drinks containing alcohol do you have on a typical day when you are drinking?: 1 or 2 3. How often do you have six or more drinks on one occasion?: Never Total Score: 3 LENIN-7 AMB Questionnaire LENIN-7 Date LENIN - 7 assessed: 08/08/24 Feeling nervous, anxious, or on edge: 0 = Not at all Not being able to stop or control worryin = Not at all Worrying too much about different things: 0 = Not at all Trouble relaxin = Not at all Being so restless that it is hard to sit still: 0 = Not at all Becoming easily annoyed or irritable: 0 = Not at all Feeling afraid as if something awful might happen: 0 = Not at all Total LENIN-7 score (0-4 normal; 5-9 mild; 10-14 moderate; 15-21 severe): 0 Source: Developed by Drs. Luis Fernando Melgar, Eliza Parsons, Uri Acuna and colleagues, with an educational joshua from [employer]. LENIN-7 Assessment Billing LENIN-7 Assessment Tool: LENIN-7 Assessment 18658 Review of Systems Const Denies body aches, Denies chills, Denies excessive sweating, Denies fatigue, Denies fever(s) and Denies headache(s) Eyes Denies blurry vision ENT Denies dysphagia, Denies vertigo, Denies dizziness, Denies headache(s), Denies hearing loss and Denies tinnitus Card Denies chest pain, Denies chest pain with activity, Denies syncope, Denies irregular heart rhythm and Denies dyspnea Resp Denies chest congestion, Denies cough, Denies hemoptysis, Denies dyspnea and Denies wheezing GI Denies abdominal pain, Denies melena, Denies hematochezia, Denies coffee ground emesis, Denies dysphagia, Denies diarrhea, Denies nausea and Denies vomiting Denies difficulty urinating, Denies dysuria, Denies urinary frequency, Denies urinary hesitancy and Denies urinary urgency Musc Denies arthralgias, Denies limited range of motion, Denies muscle cramps and Denies muscle weakness Skin/Breast Denies rash and Denies skin ulcer Neuro Denies Abnormal speech present, Denies confusion, Denies vertigo, Denies dizziness, Denies syncope, Denies headache(s), Denies memory loss and Denies seizure-like activity Psych Denies anxiety, Denies confusion, Denies depression, Denies memory loss, Denies panic attacks and Denies paranoia Endo Denies excessive sweating, Denies fatigue, Denies flushing, Denies polydipsia and Denies polyuria Aller/Immun Denies wheezing Physical exam (Primary Care) Vital Signs: Last Vital Signs Pulse 66 08/08/24 10:21 BP 128/78 08/08/24 10:21 Pulse Ox 97 08/08/24 10:21 Oxygen Delivery Method Room Air 08/08/24 10:21 BMI result Body Mass Index 33.0 BMI Assessment/Plan discussion: High BMI High, discussed plan: lifestyle, weight reduction, dietary and physical activity Tobacco/Smoking Status: Tobacco use Status Tobacco use date assessed 09/25/23 08/08/24 10:22 Patient Tobacco Use Status Never used Tobacco 08/08/24 10:22 e-Cigarette/Vaping Use Never Used 08/08/24 10:22 PHQ-9: PHQ-9 Score PHQ-9: Total score 0 08/08/24 11:10 Depression Screening Interpretation: Negative Thrive Assessment: Date of Thrive Assessment Date Thrive assessed 08/08/24 08/08/24 10:31 Currently or been in a relationship where the following occur: No concerns reported Const General: cooperative, comfortable, no acute distress, alert and awake; No confusion Orientation/consciousness: oriented to person, oriented to place, patient oriented x3 and No confusion HENMT Head: Yes normocephalic Ears: external ears normal and TM's normal bilaterally Face and sinus: No sinus tenderness Mouth: Normal oral and palatal mucosa present and tongue normal Teeth and gingiva: dentition normal and gingiva normal Throat: Yes posterior oropharynx normal, Yes tonsils normal and Yes uvula midline Eyes Conjunctivae: conjunctivae normal Sclerae: sclerae normal Pupils: Equal, round and reactive pupils present EOM: EOMs intact bilaterally Direct Ophthalmoscopy: No no photophobia Neck Neck: Yes no lymphadenopathy, No tender and Yes no JVD Thyroid: Thyroid normal Carotids: no bruits Chest Chest palpation & inspection: no tenderness Resp Effort & Inspection: normal respiratory effort, no audible wheezes, not labored and no stridor Auscultation: no crackles, no rales, no rhonchi and no wheezes Cardio Jugular venous distension: no JVD Rate: regular rate, not bradycardic and not tachycardic Rhythm: regular rhythm Bruits: no carotid bruits Peripheral pulses: Peripheral pulses 2+ throughout GI Inspection: Yes normal to inspection, No abdominal wall ecchymosis and No visible herniation Palpation (GI): Soft to palpation, nontender, no guarding, not rigid and No hepatosplenomegaly present Auscultation: normoactive bowel sounds General: Yes no CVA tenderness Back/Spine/Pelvis Back: no CVA tenderness and No back tenderness Cervical Spine: cervical ROM normal Thoracic/Lumbar Spine: thoracic and lumbar spine normal to inspection, straight leg raise negative bilaterally, No thoraco-lumbar ROM limited and No lumbar spinal tenderness Skin Lesions: no lesions Rashes: no rashes Wounds: no wounds Neuro General: oriented to person, oriented to place, patient oriented x3, CN's II-XI intact bilaterally and No confusion Cranial nerves: Yes Equal, round and reactive pupils present and Yes Normal accommodation reflex present Cognition (Neuro): normal cognition Speech: No Abnormal speech present Gait exam (Neuro): Normal gait present Motor exam (neuro): 5/5 motor strength present throughout Extrem Right upper extremity: full ROM; no cyanosis Left upper extremity: full ROM; no cyanosis Right lower extremity: no edema Left lower extremity: no edema Psych Appearance: grossly normal Mental Status: mental status grossly normal Affect: normal affect Attitude: cooperative Thought process: Normal thought process present Office Procedures Flu Questionnaire Does the patient have a severe egg allergy?: No Immunizations Fluarix Triv [id number] (PF) 45 mcg (15 mcg x 3)/0.5 mL IM syringe Performing Provider: Rush Lancaster PA-C Performing Location: [facility] Documented (not given) by: MAMADOU Rodriguez on 08/08/24 11:11 Reason Not Given: Patient Refused Boostrix Tdap 2.5 Lf unit-8 mcg-5 Lf/0.5 mL intramuscular syringe Performing Provider: Rush Lancaster PA-C Performing Location: [facility] Administered by: MAMADOU Rodriguez on 08/08/24 11:10 Dose Route Admin Location Dispensed Lot Number Expiration Date [employer] 0.5 mL IM Right Deltoid 0.5 mL [id number] 10/09/26 [id number] [employer] VIS Given Date VIS Provided VIS Publication Date 08/08/24 Single Vaccine 21 Eligibility Eligibility Date Funding Source Not [facility] Eligible 08/08/24 Private Coding Level of Care Code Est Pt Prev Care 40-64y(86021) Diagnoses Annual physical exam Z00.00 Essential hypertension I10 Hypertension type: essential hypertension Lumbar disc disease M51.9 Chronic obstructive pulmonary disease, unspecified COPD type J44.9 COPD type: unspecified COPD Class 1 obesity E66.811 Mixed hyperlipidemia E78.2 Hyperlipidemia type: mixed hyperlipidemia Additional Codes LENIN-7 Assessment Billing - LENIN-7 Assessment Tool: LENIN-7 Assessment 83623 ([id number]) PHQ-9 - 26009 - PHQ-9 Billing: Yes ([id number]) Assessment & Plan Assessment & Plan (1) Annual physical exam: Code(s): Z00.00 - Encounter for general adult medical examination without abnormal findings Category: Medical Plan: As per HPI (2) HTN (hypertension): Code(s): I10 - Essential (primary) hypertension Category: Medical Qualifiers: Hypertension type: essential hypertension Qualified Code(s): I10 - Essential (primary) hypertension Plan: His blood pressure acceptable today in office. Will continue his current dose of antihypertensive medication with goal blood pressure to be below 140/90 (3) Lumbar disc disease: Code(s): M51.9 - Unspecified thoracic, thoracolumbar and lumbosacral intervertebral disc disorder Category: Medical Plan: Continues to suffer with lumbar spine pain and upper trapezius tightness. Does use cyclobenzaprine and meloxicam with decent affect on reducing his pain. Does see a chiropractor quite regularly we to get adjustments which are helpful temporarily. (4) COPD (chronic obstructive pulmonary disease): Code(s): J44.9 - Chronic obstructive pulmonary disease, unspecified Category: Medical Qualifiers: COPD type: unspecified COPD Qualified Code(s): J44.9 - Chronic obstructive pulmonary disease, unspecified Plan: Continues with daily use of his Wixela inhaler and p.r.n. use of his albuterol inhaler. He reports his COPD symptoms are not the best controlled though has been able to manage. (5) Class 1 obesity: Code(s): E66.811 - Obesity, class 1 Category: Medical Plan: Patient does understand his BMI is above 30 will would like to restart GLP 1 to help him lose weight. He did start Wegovy a few months ago though did report having side effects though would like to try the med again. He does have comorbidities such as hypertension and hyperlipidemia which will likely improve with weight reduction (6) HLD (hyperlipidemia): Code(s): E78.5 - Hyperlipidemia, unspecified Category: Medical Qualifiers: Hyperlipidemia type: mixed hyperlipidemia Qualified Code(s): E78.2 - Mixed hyperlipidemia Plan: patient's most recent lipid panel showing borderline high total cholesterol and LDL. he will work on lifestyle and dietary modifications to reduce his cholesterol Orders: Orders Microalbumin, Random (w Creat) Today I10 - Essential (primary) hypertension TDaP Immunization Today Z23 - Encounter for immunization Influenza [id number] Immunization Today Z23 - Encounter for immunization Lipid Panel Today E78.2 - Mixed hyperlipidemia Comprehensive [place]. Panel Fast Today I10 - Essential (primary) hypertension Complete Blood Count no Diff Today I10 - Essential (primary) hypertension Medications: New semaglutide (weight loss) (Wegovy) administer weeks 1 through 4 of therapy 0.25 mg (0.5 mL) subcut QWEEK 2 mL 0RF 4 weeks E66.811 - Obesity, class 1 Changed From meloxicam 15 mg PO DAILY 30 days 30 tabs 3RF M51.9 - Unspecified thoracic, thoracolumbar and lumbosacral intervertebral disc disorder To meloxicam 15 mg PO DAILY 90 tabs 1RF 90 days M51.9 - Unspecified thoracic, thoracolumbar and lumbosacral intervertebral disc disorder
== END 2024-08-08 12:01 | disposition home or self-care (01) ==
PROVIDERS: PCP Physician Assistant; Visit Provider Physician Assistant
DX: Z00.00 Encounter for general adult medical examination without abnormal findings (principal); J44.9 Chronic obstructive pulmonary disease, unspecified; E66.811 Obesity, class 1; Z68.33 Body mass index [BMI] 33.0-33.9, adult; I10 Essential (primary) hypertension; M51.9 Unspecified thoracic, thoracolumbar and lumbosacral intervertebral disc disorder; E78.2 Mixed hyperlipidemia; Z23 Encounter for immunization

== ENCOUNTER → 2024-08-08 10:17 | Outpatient (BNVA) | payer OTHER, SELFPAY | PROVIDERS: PCP Physician Assistant; Visit Provider Physician Assistant | DX: Z00.00 Encounter for general adult medical examination without abnormal findings (principal); I10 Essential (primary) hypertension; M51.9 Unspecified thoracic, thoracolumbar and lumbosacral intervertebral disc disorder; J44.9 Chronic obstructive pulmonary disease, unspecified; E66.811 Obesity, class 1; E78.2 Mixed hyperlipidemia; Z23 Encounter for immunization | CPT/HCPCS: 90471; 90715; 96127 ==

== ENCOUNTER 2025-02-12 10:54 | Outpatient (REF) | payer OTHER, SELFPAY ==
[2025-02-12 11:54] LABS: Hematocrit 44.8 % (42.0-52.0); Hemoglobin 15.9 g/dl (14.0-18.0); Mean Corpuscular HGB Conc 35.5 g/dl (31.0-36.0); Mean Corpuscular Hemoglobin 30.9 pg (27.0-33.0); Mean Platelet Volume 9.6 fL (9.4-12.4); Platelet Count 291 X10*3/uL (160-400); Red Blood Count 5.15 X10*6/uL (4.60-5.80); Red Cell Distribution Width 12.7 % (11.0-16.0); White Blood Count 8.7 X10*3/uL (4.8-10.8)
[2025-02-12 12:53] LABS: Alanine Aminotransferase 59 U/L (0-40); Albumin Level 4.8 g/dL (3.5-5.0); Alkaline Phosphatase 74 U/L (39-117); Anion Gap 14 (12-20); Aspartate Amino Transferase 45 U/L (5-37); Blood Urea Nitrogen 18 mg/dL (9-16); Calcium 9.6 mg/dL (8.4-10.2); Carbon Dioxide 25 mmol/L (22-29); Chloride 104 mmol/L (96-108); Cholesterol 240 mg/dL (<200); Estimated Glomerular Filt Rate 55; Glucose Fasting 111 mg/dL (60-99); HDL Cholesterol 52 mg/dL (>40); LDL Cholesterol Calculated 171 mg/dL (<100); Potassium 3.8 mmol/L (3.3-5.1); Sodium 139 mmol/L (135-145); Total Protein 7.5 g/dL (6.5-8.0); Triglycerides 89 mg/dL (<150)
[2025-02-12 13:08] LABS: Creatinine Urine 287.11 mg/dL; Microalbum/Creatinine Ratio Ur 9.7 ug/mg cr (<30)
== END 2025-02-12 10:55 | disposition home or self-care (01) ==
LOC: HO.LAB 10:54
PROVIDERS: PCP Physician Assistant; Visit Provider Physician Assistant
DX: E78.2 Mixed hyperlipidemia (principal); I10 Essential (primary) hypertension; J44.9 Chronic obstructive pulmonary disease, unspecified; E66.811 Obesity, class 1; Z68.34 Body mass index [BMI] 34.0-34.9, adult; E16.2 Hypoglycemia, unspecified; Z79.899 Other long term (current) drug therapy
CPT/HCPCS: 36415; 80053; 80061; 82043; 82570; 85027; 96127; 99212

== ENCOUNTER 2025-02-12 11:29 | Outpatient (AMB) | payer OTHER, SELFPAY ==
[2025-02-12 11:43] VITALS: BP 110/72; PULSE 93; TEMP 36.4; O2SAT 95; BMI 34.6
--- NOTE | 2025-02-12 11:43 | MHC.PC.OV ---
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 Required: No Accompanied by: Self / Same As Patient Allergies amoxicillin Allergy (Unknown, Verified 02/12/25 12:03) unknown doxycycline Allergy (Unknown, Verified 02/12/25 12:03) hives onion Allergy (Unknown, Verified 02/12/25 12:03) hives tetracycline Allergy (Unknown, Verified 02/12/25 12:03) hives environmental Allergy (Unknown, Uncoded 02/12/25 12:03) Unknown Medication List - Last Reconciled 02/12/25 by Rush Lancaster PA-C albuterol sulfate 2.5 mg (3 mL) inhalation Q6H albuterol sulfate 90 mcg/actuation 2 puffs inhalation Q6H PRN 30 days cyclobenzaprine 10 mg PO TID PRN 10 days fluticasone propion-salmeterol 250-50 mcg/dose (Wixela Inhub) 1 inh inhalation BID 30 days lisinopril-hydrochlorothiazide 10-12.5 mg 1 tab PO DAILY 90 days meloxicam 15 mg PO DAILY 90 days montelukast 10 mg PO DAILY nebulizer accessories As directed nebulizers (Compact Compressor Nebulizer) As directed valacyclovir 500 mg PO DAILY Tobacco use date assessed: 02/12/25 Dental Screening Dental Screen Date: 02/12/25 Did you have a dental visit in the last 12 months?: Yes Did you have a dental problem in the last 6 months where you did not have access to dental care?: No Was dental information given to patient?: Patient has dentist HPI f/u HLD HPI Details Patient is a 54-year-old male here today for a follow-up visit.? Patient has a past medical history significant for COPD, hypertension, obesity, traumatic left rotator cuff tear. Concern--> Tarun concerns regarding fluctuating blood sugar levels and dietary management. He reports having difficulty maintaining stable blood glucose levels, with episodes of hypoglycemia occurring particularly at night and sporadically during the day. The patient's dietary habits are inconsistent, often leading to missed meals and periods of high carbohydrate consumption. He associates this dietary inconsistency with his fluctuating glucose levels. A family history of diabetes is noted, and his previous use of Wegovy for weight management was effective but discontinued due to insurance issues. Left rotator cuff tear: HAS UNDERWENT ROTATOR CUFF REPAIR THOUGH SEEMS SOME NOT HAVE FULLY RECOVERED. He is considering a full left shoulder replacement. Continues with the use of meloxicam on a daily basis, p.r.n. use of cyclobenzaprine which is helpful on reducing his muscle tension when needed. Still works full-time. .. HTN: Blood pressure acceptable today in office. ? He reports blood pressures at home have been 130s to 140 systolic.? He reports he may have forgotten to take his blood pressure medication today. ?He does report his diet is poor .? Otherwise denies any chest discomfort, headaches or shortness of breath. .. : Class 1 Obese: Has unfortunately gained his weight back since stopping GLP 1, he can not control his hunger and eating habits. Unfortunately insurance does not cover Wegovy. Will try an alternative GLP 1 (zepbound) to help manage his weight. He does understand his BMI is over 30 will try to work on being more physically active and adapting to better eating habits to reduce his weight. .. 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 He still does shortness of breath especially on exertion. does have a nebulizer at times. He is considering Story establishing care with pulmonology in [place] continues with maintenance inhaler which has been helpful . Lumbar disc disease:? Continues with the use of cyclobenzaprine at night and meloxicam during the day (2 weeks on/ 2 weeks off. [facility] Medical History Hypertension COPD (chronic obstructive pulmonary disease) Surgical History History of shoulder surgery Deficient knowledge of leg surgery History of tonsillectomy Family History Father CVD (cardiovascular disease) History of quadruple bypass Mother Diabetes Ovarian cancer Breast cancer Brain cancer Sister In good health Maternal Grandmother Cancer Maternal Grandfather Lung cancer Paternal Grandmother Dementia in Alzheimer's disease Paternal Grandfather Renal failure GI cancer Social History Housing: House Alcohol intake: current Alcohol intake frequency: holidays/special occasions only Patient Tobacco Use Status: Never used Tobacco e-Cigarette/Vaping Use: Never Used Second Hand Smoke Exposure: No Substance Use Type: Marijuana service: No Current occupational status: employed Current occupation: [employer] Current occupational exposures/hazards: No Cognitive needs: No Hearing needs: No Vision needs: Yes (glasses) Questionnaire PHQ-9 Over the last 2 weeks, how often have you been bothered by any of the following problems? 1. Little interest or pleasure in doing things: not at all 2. Feeling down, depressed, or hopeless: not at all 3. Trouble falling or staying asleep, or sleeping too much: not at all 4. Feeling tired or having little energy: more than half the days 5. Poor appetite or overeating: not at all 6. Feeling bad about yourself - or that you are a failure or have let yourself or your family down: not at all 7. Trouble concentrating on things, such as reading the newspaper or watching television: not at all 8. Moving or speaking so slowly that other people could have noticed. Or the opposite - being so fidgety or restless that you have been moving around a lot more than usual: not at all 9. Thoughts that you would be better off or of hurting yourself in some way: not at all Total score: 2 Depression Screening Interpretation: Negative Depression Screening Done: Yes 48991 - PHQ-9 Billing: Yes Source: Developed by Drs. Luis Fernando Melgar, Eliza Parsons, Uri Acuna and colleagues, with an educational joshua from [employer]. Thrive Questionnaire Date Thrive assessed: 02/12/25 I am a: Patient What is your living situation today?: I have a steady place to live Within the past 12 months, did the food you bought not last and you didn't have the money to get more?: I choose not to answer this question Within the past 12 months, did you worry whether your food would run out before you got money to buy more?: I choose not to answer this question Do you have trouble paying for medicines?: I choose not to answer this question Do you have trouble getting transportation to medical appointments?: I choose not to answer this question Do you have trouble paying your heating and electricity bill?: I choose not to answer this question Do you have trouble taking care of your child, family member or friend?: No Do you have trouble with day-to-day activities such as bathing, preparing meals, shopping, managing finances, etc.?: No Are you currently unemployed and looking for a job?: No Are you interested in more education?: No Please select the resources that you would like help with: None Currently or been in a relationship where the following occur: I choose not to answer THRIVE Score: 0 AUDIT C Alcohol Use Questionnaire (AUDIT-C) 1. How often do you have a drink containing alcohol?: 2-4 times a month 2. How many drinks containing alcohol do you have on a typical day when you are drinking?: 1 or 2 3. How often do you have six or more drinks on one occasion?: Never Total Score: 2 LENIN-7 AMB Questionnaire LENIN-7 Date LENIN - 7 assessed: 02/12/25 Feeling nervous, anxious, or on edge: 0 = Not at all Not being able to stop or control worryin = Not at all Worrying too much about different things: 0 = Not at all Trouble relaxin = Not at all Being so restless that it is hard to sit still: 0 = Not at all Becoming easily annoyed or irritable: 0 = Not at all Feeling afraid as if something awful might happen: 0 = Not at all Total LENIN-7 score (0-4 normal; 5-9 mild; 10-14 moderate; 15-21 severe): 0 Source: Developed by Drs. Luis Fernando Melgar, Eliza Parsons, Uri Acuna and colleagues, with an educational joshua from [employer]. LENIN-7 Assessment Billing LENIN-7 Assessment Tool: LENIN-7 Assessment 16724 Physical exam (Primary Care) Vital Signs: Last Vital Signs Temp 97.5 F 02/12/25 11:43 Pulse 93 02/12/25 11:43 BP 110/72 02/12/25 11:43 Pulse Ox 95 02/12/25 11:43 Oxygen Delivery Method Room Air 02/12/25 11:43 BMI result Body Mass Index 34.6 BMI Assessment/Plan discussion: High BMI High, discussed plan: lifestyle, weight reduction, dietary and physical activity Tobacco/Smoking Status: Tobacco use Status Tobacco use date assessed 02/12/25 02/12/25 11:49 Patient Tobacco Use Status Never used Tobacco 02/12/25 11:49 e-Cigarette/Vaping Use Never Used 02/12/25 11:49 PHQ-9: PHQ-9 Score PHQ-9: Total score 2 02/12/25 12:04 Depression Screening Interpretation: Negative Thrive Assessment: Date of Thrive Assessment Date Thrive assessed 02/12/25 02/12/25 11:49 Currently or been in a relationship where the following occur: I choose not to answer Coding Level of Care Code Est Pt Level 4 (44211) Diagnoses Mixed hyperlipidemia E78.2 Hyperlipidemia type: mixed hyperlipidemia Essential hypertension I10 Hypertension type: essential hypertension Chronic obstructive pulmonary disease, unspecified COPD type J44.9 COPD type: unspecified COPD Class 1 obesity E66.811 Hypoglycemia E16.2 Additional Codes LENIN-7 Assessment Billing - LENIN-7 Assessment Tool: LENIN-7 Assessment [id number] ([id number]) PHQ-9 - 12107 - PHQ-9 Billing: Yes ([id number]) Assessment & Plan Assessment & Plan (1) HLD (hyperlipidemia): Code(s): E78.5 - Hyperlipidemia, unspecified Category: Medical Qualifiers: Hyperlipidemia type: mixed hyperlipidemia Qualified Code(s): E78.2 - Mixed hyperlipidemia Plan: Unfortunately patient is cholesterol remains elevated. He does admit to dietary indiscretion. Will consider statin therapy. Goal LDL to be below 130 (2) HTN (hypertension): Code(s): I10 - Essential (primary) hypertension Category: Medical Qualifiers: Hypertension type: essential hypertension Qualified Code(s): I10 - Essential (primary) hypertension Plan: Patient's blood pressure acceptable today in office. Will continue his current dose of antihypertensive medication with goal blood pressure to remain below 140/90 (3) COPD (chronic obstructive pulmonary disease): Code(s): J44.9 - Chronic obstructive pulmonary disease, unspecified Category: Medical Qualifiers: COPD type: unspecified COPD Qualified Code(s): J44.9 - Chronic obstructive pulmonary disease, unspecified Plan: Patient continues with the use of his albuterol inhaler and Wixela inhaler which he reports his breathing has been pretty stable as of late. 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 He did find great success losing weight with GLP 1 in the past. Will try an alternative GLP 1 (zdepbound) to see if we can restart management. (5) Hypoglycemia: Code(s): E16.2 - Hypoglycemia, unspecified Category: Medical Plan: Monitor pending lab results for glucose and cholesterol levels once available. Discussed dietary management strategies to stabilize blood sugar levels, including regular meal schedules and reduced carbohydrate intake. Plan to follow up with nutritional counseling. Medications: Refilled lisinopril-hydrochlorothiazide 10-12.5 mg 1 tab PO DAILY 90 days 90 tabs 1RF I10 - Essential (primary) hypertension valacyclovir 500 mg PO DAILY 90 tabs 2RF fluticasone propion-salmeterol 250-50 mcg/dose (Wixela Inhub) 1 inh inhalation BID 30 days 60 ea 3RF J44.9 - Chronic obstructive pulmonary disease, unspecified nebulizer accessories As directed 1 ea 0RF albuterol sulfate 2.5 mg (3 mL) inhalation Q6H 15 mL 1RF albuterol sulfate 90 mcg/actuation 2 puffs inhalation Q6H 30 days PRN 8.5 grams 6RF shortness of breath or wheezing J44.9 - Chronic obstructive pulmonary disease, unspecified
== END 2025-02-12 12:41 | disposition home or self-care (01) ==
LOC: HO.HMCH 11:30
PROVIDERS: PCP Physician Assistant; Visit Provider Physician Assistant
DX: E78.2 Mixed hyperlipidemia (principal); J44.9 Chronic obstructive pulmonary disease, unspecified; E66.811 Obesity, class 1; Z68.34 Body mass index [BMI] 34.0-34.9, adult; I10 Essential (primary) hypertension; E16.2 Hypoglycemia, unspecified